=== PATIENT | female | born 1980 | race Caucasian/White ===

== ENCOUNTER 2025-02-23 06:05 | Day surgery (SDC) | payer OTHER ==
[2025-02-22 12:39] LABS: HEMATOCRIT 35.9 % (36.0-45.00); HEMOGLOBIN 12.2 g/dL (12.0-15.00); MEAN CELL VOLUME 82.9 fL (80.00-100.00); MEAN CORPUSCULAR HEMOGLOBIN 28.3 pg (27.00-32.0); MEAN CORPUSCULAR HGB CONC 34.1 g/dl (32.0-36.0); PLATELET COUNT 234 K/uL (150-450); RED BLOOD COUNT 4.33 M/uL (4.00-6.00); RED CELL DISTRIBUTION WIDTH 12.4 % (11.5-14.5)
[2025-02-22 13:12] LABS: INR 0.95; PARTIAL THROMBOPLASTIN TIME 26.6 SECONDS (22.0-34.0); PROTHROMBIN TIME 10.4 SECONDS (9.0-11.5)
[2025-02-22 13:27] LABS: BILIRUBIN TOTAL 0.27 mg/dL (0.3-1.2); CALCIUM 9.6 mg/dL (8.5-10.1); CREATININE SERUM 0.56 mg/dL (0.55-1.02); GFR 118.72; GLOBULINA 3.5 G/DL (2.4-3.5); POTASSIUM 4.5 mEq/L (3.5-5.1); TOTAL PROTEIN 7.5 gm/dL (6.4-8.2)
[~2025-02-23 06:05] MED LIST: PRENATABS RX T1 EACH PO; SYNTHROID50 MCG PO
[2025-02-23] MEDS ORDERED: CEFAZOLIN SODIUM 1,000 MG VIAL ONE ×2 (07:51→08:44)
[2025-02-23] MEDS ORDERED: POVIDONE-IODINE 118 ML BOTT TOP ONE (08:44)
[2025-02-23] MEDS ORDERED: PROMETHAZINE HCL 50 MG/ML AMPUL IM ONE (11:00)
[2025-02-23] MEDS ORDERED: MORPHINE SULFATE 4 MG/ML VIAL IV PRN (11:00)
== END 2025-02-23 12:15 | disposition home or self-care (01) ==
LOC: CIR.AMB 06:05
PROVIDERS: ATTEND Obstetrics & Gynecology
DX: O02.1 Missed abortion (principal); O72.2 Delayed and secondary postpartum hemorrhage